=== PATIENT | female | born 1975 | race Caucasian/White ===

== ENCOUNTER 2018-02-03 14:01 | Emergency (ER) | payer OTHER ==
[~2018-02-03] VITALS: Ht 162.6 cm; Wt 68.0 kg
[2018-02-03 14:09] VITALS: BP 170/86; PULSE 98; RESP 16; TEMP 98.7; O2SAT 100
[2018-02-03] MEDS ORDERED: TETANUS/DIPHTHERIA TOXOID ADULT 0.5 ML VIAL IM ONE (15:15)
[2018-02-03] MEDS ORDERED: ACETAMINOPHEN/HYDROcodone 325 MG/5 MG TAB PO ONE (15:15)
[2018-02-03] MEDS ORDERED: AMOXICILLIN/CLAVULANATE K 875 MG TAB PO ONE (15:30)
--- NOTE | 2018-02-03 15:33 | PD ---
HPI Chief Complaint: Bite or Sting Time Seen by Provider: 15:04 Travel History International Travel<30 days: No Contact w/Intl Traveler<30days: No Traveled to known affect area: No History of Present Illness HPI 42-year-old female presents to the emergency room for evaluation of dog bite to the left forearm. Patient states she was walking her small dog in her neighborhood when a large pitbull mix ran up and began fighting with her dog. She tried to pick her dog up to protect it in the pit bull bit her left arm. The flatbed owner operator came out and collected the dog. They did not say whether or not the dog was up-to-date on rabies animal control was called and is investigating the dog shot record. She reports significant pain in the left arm, worse with range of motion. Denies paresthesias. Unknown last tetanus. Patient denies any chronic medical conditions or daily medications. PFSH Past Medical History ?: Unknown Social History Alcohol Use: Yes Tobacco Use: No Substance Use: No Allergies-Medications (Allergen,Severity, Reaction): Coded Allergies: No Known Allergies (Unverified , 02/03/18) Reported Meds & Prescriptions Reported Meds & Active Scripts Active Augmentin (Amoxicillin-Clavulanate) 875-125 Mg Tab 1 Tab PO BID 10 Days Review of Systems Except as stated in HPI: all other systems reviewed are Neg Physical Exam Narrative GENERAL: Well-nourished, well-developed female no acute distress. Afebrile. Ambulatory. SKIN: Focused skin assessment warm/dry. There are several puncture wounds in the distribution of the dog's mouth over the left forearm. HEAD: Normocephalic. EYES: No scleral icterus. No injection or drainage. NECK: Supple, trachea midline. No JVD or lymphadenopathy. CARDIOVASCULAR: Regular rate and rhythm without murmurs, gallops, or rubs. RESPIRATORY: Breath sounds equal bilaterally. No accessory muscle use. GASTROINTESTINAL: Abdomen soft, non-tender, nondistended. MUSCULOSKELETAL: No cyanosis. Mild to moderate edema of the left middle forearm. 2+ radial pulse. Radial, ulnar, median nerves intact. Full range of motion of the left arm. Data Data Last Documented VS Vital Signs Date Time Temp Pulse Resp B/P (MAP) Pulse Ox O2 Delivery O2 Flow Rate FiO2 02/03/18 14:09 98.7 98 16 170/86 (114) 100 Orders Orders Forearm (2vws) (02/03/18 ) Wound Care (02/03/18 15:13) Ice / Cold Pack PRN (02/03/18 15:13) Acetamin-Hydrocod 325-5 Mg (Odd 5-325 (02/03/18 15:15) Tetanus/Diphtheria Tox Adult (Tetanus/Di (02/03/18 15:15) Amoxicil-Clavulanate (Augmentin) (02/03/18 15:30) Ed Discharge Order (02/03/18 16:34) MDM Medical Decision Making Medical Screen Exam Complete: Yes Emergency Medical Condition: Yes Medical Record Reviewed: Yes Differential Diagnosis Contusion, fracture, dog bite, foreign body, infection Narrative Course 42-year-old female presents to the emergency room for evaluation of dog bite to the left forearm that occurred just prior to arrival. Patient was bit by dog in her neighborhood. Animal control is involved and obtaining the shot records ; we will defer vaccination administration until we get dog's rabies status. Patient was updated on tetanus and given first dose of Augmentin in the emergency room. Wounds were thoroughly irrigated. Most are small puncture wounds and did not require repair however there was one that did require loose repair, see procedure note for details. Patient was given Lortab in the emergency room for pain. X-ray shows puncture wound with subcutaneous air but no acute fracture. Procedures Procedure Narrative LACERATION LOCATION: Left forearm LENGTH: 1 cm NUMBER OF STITCHES/LORIE: One simple interrupted REPAIR: The area of the laceration was prepped with Betadine and sterilely draped. The laceration was infiltrated with 1% lidocaine. The wound was copiously irrigated and explored without evidence of foreign body, tendon injury or neurovascular injury. The wound was loosely closed using 5-0 Prolene. This was a single layer repair. A sterile dressing was applied. The patient was advised to keep the dressing clean and dry. Patient tolerated the procedure well. Diagnosis Primary Impression: Dog bite of left forearm Qualified Codes: S51.852A - Open bite of left forearm, initial encounter; W54.0XXA - Bitten by dog, initial encounter Referrals: Primary Care Physician Additional Instructions: Rest and drink plenty of fluids. Keep wounds clean and dry. Apply triple antibiotic ointment daily. Stitches out in 7-10 days. Ibuprofen as directed, as needed for pain. Take Augmentin as directed, until gone. Follow up with a primary care physician. Return to emergency room for worsening symptoms, as discussed. Scripts Amoxicillin-Clavulanate (Augmentin) 875-125 Mg Tab 1 TAB PO BID for Infection for 10 Days, #20 TAB 0 Refills Prov: Reji Pino MD 02/03/18 Disposition: 01 DISCHARGE HOME Condition: Stable Tasha Ravi Feb 03, 2018 15:33
--- NOTE | 2018-02-03 15:56 | RADRPT ---
EXAM DATE/TIME: 02/03/2018 15:24 [facility] COMPARISON: No previous studies available for comparison. INDICATIONS : Evaluate for foreign body, dog bite MEDICAL HISTORY : None. SURGICAL HISTORY : None. ENCOUNTER: Initial ACUITY: 1 day PAIN SCORE: 6/10 LOCATION: Left Fro[place] FINDINGS: The radius and ulna are intact. No retained foreign body is seen. No fractures seen. There is soft tissue defect in the forearm. CONCLUSION: 1. No acute fracture or retained foreign body identified. Lc Spence MD on February 03, 2018 at 15:51 Board Certified Radiologist. This report was verified electronically.
[2018-02-03] MEDS ORDERED: AUGM875T3 PO (16:09)
== END 2018-02-03 17:15 | disposition home or self-care (01) ==
LOC: NEPD 14:01
DX: S51.852A Open bite of left forearm, initial encounter (principal); W54.0XXA Bitten by dog, initial encounter; Z23 Encounter for immunization
CPT/HCPCS: 12001; 73090; 90471; 90714

== ENCOUNTER 2018-02-10 22:08 | Emergency (ER) | payer OTHER ==
[~2018-02-10] VITALS: Ht 165.1 cm; Wt 80.0 kg
[~2018-02-10 22:08] MED LIST: AUGM875T3 PO
[2018-02-10 22:25] VITALS: BP 130/79; PULSE 95; RESP 16; TEMP 99.5; O2SAT 100
--- NOTE | 2018-02-11 00:29 | PD ---
HPI Chief Complaint: Bite or Sting Time Seen by Provider: 00:09 Travel History International Travel<30 days: No Contact w/Intl Traveler<30days: No Traveled to known affect area: No History of Present Illness HPI Patient was bit by a pit bull mastiff mix a week ago the dog was found to be negative for rabies had all its shots up-to-date she was in our ER a week ago left arm has bite brush of the apns of the mouth with puncture wounds on the belly of her left forearm in the ulnar aspect it is healing by secondary intention and she has been taking Augmentin twice daily today her diarrhea and stomach pain became so severe she comes in because she is worried she cannot continue the Augmentin and wants to have the arm checked out and she had a low- grade temp of 100.3. Patient has no other source for the low-grade temp she has no cough no cold no sore throat no one is sick at home with viruses patient is in the ER she looks aseptic afebrile 99.5 the wound is good there is no sign of pus or purulence the belly of the arm looks similar symmetric to the other side and no pus is expressed CBC will be sent to make sure there is no elevated bacitracin was applied covered and follow-up outpatient [facility] Past Medical History Medical History: Denies Significant Hx ?: Not Past Surgical History Surgical History: No Previous Surgery Section: Yes Social History Alcohol Use: Yes Tobacco Use: No Substance Use: No Allergies-Medications (Allergen,Severity, Reaction): Coded Allergies: No Known Allergies (Unverified , 02/10/18) Reported Meds & Prescriptions Reported Meds & Active Scripts Active Augmentin (Amoxicillin-Clavulanate) 875-125 Mg Tab 1 Tab PO BID 10 Days Review of Systems Except as stated in HPI: all other systems reviewed are Neg Skin: Positive Other (heling bite brush and fever at home worried of systmeic infection causing fev er) Physical Exam Narrative GENERAL: non toxic appearing no signs of sepsis SKIN: Warm and dry. HEAD: Atraumatic. Normocephalic. EYES: Pupils equal and round. No scleral icterus. No injection or drainage. ENT: No nasal bleeding or discharge. Mucous membranes pink and moist. NECK: Trachea midline. No JVD. CARDIOVASCULAR: Regular rate and rhythm. RESPIRATORY: No accessory muscle use. Clear to auscultation. Breath sounds equal bilaterally. GASTROINTESTINAL: Abdomen soft, non-tender, nondistended. Hepatic and splenic margins not palpable. MUSCULOSKELETAL: Extremities -->Left arm belly has a bite davide over the dog's mouth with puncture wounds that are healing by secondary intention there is no pus there is no smell of infection there is no pus on the bandage that she had over and there is minimal tenderness over the puncture flexion of her hand movement of the belly of those muscles does not create any pain no numbness in her in her hand Data Data Last Documented VS Vital Signs Date Time Temp Pulse Resp B/P (MAP) Pulse Ox O2 Delivery O2 Flow Rate FiO2 02/10/18 22:25 99.5 95 16 130/79 (96) 100 Orders Orders Complete Blood Count With Diff (02/11/18 00:26) Ed Discharge Order (02/11/18 00:52) Labs Laboratory Tests Test 02/11/18 00:30 White Blood Count 5.4 TH/MM3 Red Blood Count 4.04 MIL/MM3 Hemoglobin 12.0 GM/DL Hematocrit 34.3 % Mean Corpuscular Volume 84.9 FL Mean Corpuscular Hemoglobin 29.7 PG Mean Corpuscular Hemoglobin Concent 34.9 % Red Cell Distribution Width 12.3 % Platelet Count 311 TH/MM3 Mean Platelet Volume 6.7 FL Neutrophils (%) (Auto) 63.7 % Lymphocytes (%) (Auto) 20.6 % Monocytes (%) (Auto) 13.7 % Eosinophils (%) (Auto) 1.2 % Basophils (%) (Auto) 0.8 % Neutrophils # (Auto) 3.4 TH/MM3 Lymphocytes # (Auto) 1.1 TH/MM3 Monocytes # (Auto) 0.7 TH/MM3 Eosinophils # (Auto) 0.1 TH/MM3 Basophils # (Auto) 0.0 TH/MM3 CBC Comment DIFF FINAL Differential Comment MDM Medical Decision Making Medical Screen Exam Complete: Yes Emergency Medical Condition: Yes Differential Diagnosis healing by secondary intention vs dog bite , systemic SIRS response to local infection vs URI fever without connection to arm healing bite, Arm has no signs of infection WBC will be sent to ruleout sepsis from dog bite Narrative Course White count is serum 5 exam of the arm there is no signs of infection patient is discharged to continue applying bacitracin and let her arm heal by secondary intention and follow-up as an outpatient Diagnosis Primary Impression: Dog bite of arm Qualified Codes: S41.152D - Open bite of left upper arm, subsequent encounter ; W54.0XXD - Bitten by dog, subsequent encounter Patient Instructions: General Instructions, Puncture Wound (ED) Disposition: 01 DISCHARGE HOME Condition: Good Anthony Duran MD Feb 11, 2018 00:29
[2018-02-11 00:38] LABS: AUTOMATED NEUTROPHIL # 3.4 TH/MM3 (1.8-7.7); BASOPHIL % 0.8 % (0.0-2.0); EOSINOPHIL # 0.1 TH/MM3 (0-0.4); EOSINOPHIL % 1.2 % (0.0-4.0); HEMATOCRIT 34.3 % (35.0-46.0); LYMPH % 20.6 % (9.0-44.0); LYMPHOCYTE # 1.1 TH/MM3 (1.0-4.8); MEAN CELL VOLUME 84.9 FL (80.0-100.0); MEAN CORPUSCULAR HEMOGLOBIN 29.7 PG (27.0-34.0); MEAN CORPUSCULAR HGB CONC 34.9 % (32.0-36.0); MEAN PLATELET VOLUME 6.7 FL (7.0-11.0); MONO % 13.7 % (0.0-8.0); MONOCYTE # 0.7 TH/MM3 (0-0.9); NEUT % 63.7 % (16.0-70.0); PLATELET COUNT 311 TH/MM3 (150-450); RED BLOOD COUNT 4.04 MIL/MM3 (4.00-5.30); RED CELL DISTRIBUTION WIDTH 12.3 % (11.6-17.2); WHITE BLOOD COUNT 5.4 TH/MM3 (4.0-11.0)
== END 2018-02-11 01:05 | disposition home or self-care (01) ==
LOC: NEPC 22:08
DX: S41.152D Open bite of left upper arm, subsequent encounter (principal); W54.0XXD Bitten by dog, subsequent encounter
CPT/HCPCS: 85025; 99283